=== PATIENT | female | born 1960 | race Caucasian/White ===

== ENCOUNTER → 2017-09-27 | Outpatient (CLI) | payer OTHER ==
[2017-09-27 10:27] LABS: HEMATOCRIT 36.5 % (37.0-47.0); HEMOGLOBIN 11.3 gm/dL (12.0-15.0); MCH 21.9 pg (26.0-34.0); MCV 70.6 fL (80.0-100.0); MPV 8.1 fl. (7.2-11.1); RBC 5.17 mil/uL (4.20-5.00); RDW-CV 17.5 % (10.5-14.5); WBC 9.4 thou/uL (4.0-11.0)
[2017-09-27 10:40] LABS: ALBUMIN 3.3 g/dL (3.4-5.0); CALCIUM 8.7 mg/dL (8.5-10.1); CREATININE 0.8 mg/dL (0.6-1.3); POTASSIUM 3.9 mmol/L (3.5-5.1); TOTAL BILIRUBIN 0.3 mg/dL (<0.1-1.0); TOTAL PROTEIN 7.3 g/dL (6.4-8.2)
[2017-09-29 11:14] LABS: HCV QUANT BY PCR HCV Not Detected IU/mL (())
== END ==
LOC: M.LAB 09:58
PROVIDERS: Nurse Practitioner Adult Health
DX: B19.20 Unspecified viral hepatitis C without hepatic coma (principal)

== ENCOUNTER → 2017-12-27 | Outpatient (CLI) | payer OTHER | LOC: M.CRD 08:50 | DX: Z13.6 Encounter for screening for cardiovascular disorders (principal) ==

== ENCOUNTER → 2017-12-27 | Outpatient (CLI) | payer OTHER ==
--- NOTE | 2017-12-27 17:43 | 2DMMODE ---
[place] [address] 2 D/M-MODE ECHOCARDIOGRAM Name: PARESH FLOWERS Room: [facility]#: [id number] Admission: 12/27/17 Attend Phys: Franko Mas MD Discharge: Date of : 58 Date of Service: 12/27/17 1743 Report #: [id number] THIS REPORT FOR: //name// APPROVED REPORT Study performed: 12/27/2017 09:17:32 EXAM: Comprehensive 2D, Doppler, and color-flow Echocardiogram Patient Location: Out-Patient Status: routine BSA: 2.15 HR: 64 bpm BP: 178/98 mmHg Other Information Study Quality: Good Indications Dyspnea 2D Dimensions LVEF(%): 76.78 (>50%) IVSd: 11.89 (7-11mm) LVOT Diam: 20.53 (18-24mm) LVDd: 36.80 mm PWd: 12.11 (7-11mm) Ascending Ao: 32.71 (22-36mm) LVDs: 20.36 (25-40mm) Aortic Root: 23.09 mm Cruz's LVEF: 76.78 % Volumes Left Atrial Volume (Systole) LA ESV Index: 16.10 mL/m2 Aortic Valve AoV Peak Alcon.: 1.47 m/s AO Peak Gr.: 8.68 mmHg LVOT Max P.54 mmHg AO Mean Gr.: 4.06 mmHg LVOT Mean P.69 mmHg LVOT Max V: 1.18 m/s AO V2 VTI: 30.30 cm LVOT Mean V: 0.75 m/s YURY (VTI): 3.31 cm2 LVOT V1 VTI: 30.25 cm Mitral Valve E/A Ratio: 1.13 MV Decel. Time: 140.89 [place] [address] 2 D/M-MODE ECHOCARDIOGRAM Name: PARESH FLOWERS Room: [facility]#: [id number] Admission: 12/27/17 Attend Phys: Franko Mas MD Discharge: Date of : 58 Date of Service: 12/27/17 1743 Report #: [id number] MV E Max Alcon.: 1.05 m/s MV PHT: 40.86 ms MVA (PHT): 5.38 cm2 TDI E/Lateral E': 8.75 E/Medial E': 6.56 Medial E' Aclon.: 0.16 m/s Lateral E' Alcon.: 0.12 m/s Pulmonary Valve PV Peak Alcon.: 0.93 m/s PV Peak Gr.: 3.43 mmHg Tricuspid Valve TR Peak Gr.: 35.28 mmHg RVSP: 40.28 mmHg Left Ventricle The left ventricle is normal size. There is normal LV segmental wall motion. Mild concentric left ventricular hypertrophy. Left ventricular systolic function is normal. The left ventricular ejection fraction is within the normal range. LVEF is 60-65%. The left ventricular diastolic function is normal. Right Ventricle The right ventricle is normal size. The right ventricular systolic function is normal. Atria The left atrium size is normal. The right atrium size is normal. Aortic Valve The aortic valve is normal in structure. Trace aortic regurgitation. There is no aortic valvular stenosis. Mitral Valve The mitral valve is normal in structure. Trace mitral regurgitation. No evidence of mitral valve stenosis. Tricuspid Valve The tricuspid valve is normal in structure. Mild tricuspid regurgitation. The RVSP is _40.3 mmHg. Pulmonic Valve The pulmonary valve is normal in structure. There is no pulmonic [place] [address] 2 D/M-MODE ECHOCARDIOGRAM Name: PARESH FLOWERS Room: [facility]#: [id number] Admission: 12/27/17 Attend Phys: Franko Mas MD Discharge: Date of : 58 Date of Service: 12/27/17 1743 Report #: [id number] Great Vessels The aortic root is normal in size. IVC is normal in size and collapses with >50% inspiration Pericardium There is no pericardial effusion. <Conclusion> Mild concentric left ventricular hypertrophy. LVEF is 60-65%. Mild tricuspid regurgitation. The RVSP is _40.3 mmHg. <ELECTRONICALLY SIGNED> By: Franko Mas MD, [facility] 12/27/17 [phone] Franko Mas MD, FACC /INF
== END ==
LOC: M.CT 08:55
DX: I07.1 Rheumatic tricuspid insufficiency (principal)

== ENCOUNTER → 2018-11-21 | Outpatient (CLI) | payer OTHER ==
[2018-11-21 09:58] LABS: CHOLESTEROL 213 mg/dL (<200); HDL CHOLESTEROL 44 mg/dL (>40); LDL CHOLESTEROL 145 mg/dL (<100); TC:HDL 4.8 Ratio (Not establshd); TRIGLYCERIDE 123 mg/dL (<150); VLDL 25 mg/dL (<40)
[2018-11-21 09:59] LABS: SERUM ASSESSMENT Clear
== END ==
LOC: M.LAB 09:20
PROVIDERS: Nurse Practitioner
DX: E78.5 Hyperlipidemia, unspecified (principal)

== ENCOUNTER 2020-11-29 12:22 | Emergency (ER) | payer OTHER ==
[~2020-11-29] VITALS: Ht 160 cm; Wt 115.7 kg
[2020-11-29 12:58] LABS: ABSOLUTE BASOPHILS 0.1 thou/uL (0.0-0.2); ABSOLUTE EOSINOPHILS 0.3 thou/uL (0.0-0.7); ABSOLUTE LYMPHOCYTES 4.1 thou/uL (0.8-5.3); ABSOLUTE MONOCYTES 1.1 thou/uL (0.0-1.2); ABSOLUTE NEUTROPHILS 4.6 thou/uL (1.6-8.1); BASOPHILS 1.1 %; EOSINOPHILS 2.5 %; HEMATOCRIT 31.5 % (37.0-47.0); HEMOGLOBIN 9.5 gm/dL (12.0-15.0); LYMPHOCYTES 40.6 %; MCH 18.1 pg (26.0-34.0); MCHC 30.3 g/dL (28.0-37.0); MCV 59.8 fL (80.0-100.0); MONOCYTES 10.5 %; MPV 8.8 fl. (7.2-11.1); NUCLEATED RBCS 0 /100WBC; PLATELET COUNT* 469 thou/uL (150-400); POLYS 45.3 %; RBC 5.27 mil/uL (4.20-5.00); RDW-CV 20.1 % (10.5-14.5); WBC 10.2 thou/uL (4.0-11.0)
[2020-11-29 13:02] LABS: CREATININE 0.9 mg/dL (0.6-1.3); POTASSIUM 4.1 mmol/L (3.5-5.1)
[2020-11-29 13:07] LABS: ALBUMIN 3.8 g/dL (3.4-5.0); TOTAL BILIRUBIN 0.3 mg/dL (<0.1-1.0); TOTAL PROTEIN 7.4 g/dL (6.4-8.2)
[2020-11-29 13:24] LABS: LARGE PLATELETS OCCASIONAL; OVALOCYTES Occasional; PLATELET ESTIMATE ADEQUATE
[2020-11-29 13:28] LABS: ANISOCYTOSIS 2+; MICROCYTES 3+
[2020-11-29 13:29] LABS: HYPOCHROMASIA 2+
[2020-11-29 14:09] VITALS: BP 140/71
--- NOTE | 2020-11-30 14:43 | EKG ---
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
== END 2020-11-29 14:10 | disposition home or self-care (01) ==
LOC: M.ERS 12:22
PROVIDERS: Emergency Medicine
DX: R00.2 Palpitations (principal); D64.9 Anemia, unspecified